=== PATIENT | female | born 1985 | race Caucasian/White ===

== ENCOUNTER 2018-08-11 20:20 | Emergency (ER) | payer BC ==
--- NOTE | 2018-08-11 21:36 | ER ---
Nurse's Notes [facility] Name: Isadora Lassiter Age: 33 yrs Sex: Female : 1985 Arrival Date: 08/11/2018 Time: 20:21 Bed 13 Private MD: Steffanie Willett Diagnosis: Headache Presentation: 08/11 20:52 Presenting complaint: Patient states: that she has had a headache for 15 days and it fc got worse today after she was accidently kicked in the nose by her child. Positive for nausea and photophobia. Transition of care: patient was not received from another setting of care. Onset of symptoms was July 27, 2018. Risk Assessment: Do you want to hurt yourself or someone else? Patient reports no desire to harm self or others. Initial Sepsis Screen: Does the patient meet any 2 criteria? No. Patient's initial sepsis screen is negative. Does the patient have a suspected source of infection? No. Patient's initial sepsis screen is negative. Care prior to arrival: Medication(s) given: Fioricet taken at 1630. 20:52 Method Of Arrival: Ambulatory 20:52 Acuity: GALE 3 Triage Assessment: 20:56 Headache History: The patient has had previous headaches and this one is similar to previous episodes. General: Appears uncomfortable, obese, Behavior is calm, cooperative, appropriate for age. Pain: Complains of pain in head Pain currently is 6 out of 10 on a pain scale. Quality of pain is described as aching, throbbing, Pain began 15 days ago Is continuous, Also complains of nausea, photophobia. EENT: No deficits noted. Neuro: Level of Consciousness is awake, alert, obeys commands, Oriented to person, place, time, situation, Reports headache in entire. Cardiovascular: No deficits noted. Respiratory: No deficits noted. GI: Reports nausea. : No deficits noted. Derm: Skin is pink, warm \T\ dry. Musculoskeletal: Circulation, motion, and sensation intact. Capillary refill < 3 seconds, Range of motion: intact in all extremities. 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 - Social history:: Smoking status: Patient/guardian denies using tobacco. - Ebola Screening: : Patient negative for fever greater than or equal to 101.5 degrees Fahrenheit, and additional compatible Ebola Virus Disease symptoms Patient denies exposure to infectious person Patient denies travel to an Ebola-affected area in the 21 days before illness onset. - Family history:: not pertinent. Screenin:23 Abuse screen: Denies threats or abuse. Denies injuries from another. Nutritional mg2 screening: No deficits noted. Tuberculosis screening: No symptoms or risk factors identified. Fall Risk None identified. Assessment: 21:21 General: Appears in no apparent distress. uncomfortable, Behavior is calm, cooperative. mg2 Pain: Complains of pain in head Pain does not radiate. Pain currently is 7 out of 10 on a pain scale. Quality of pain is described as aching, Pain began gradually. Neuro: Level of Consciousness is awake, alert, obeys commands, Oriented to person, place, time, situation, Reports headache. Cardiovascular: Capillary refill < 3 seconds Patient's skin is warm and dry. Respiratory: Airway is patent Respiratory effort is even, unlabored, Respiratory pattern is regular, symmetrical. GI: No signs and/or symptoms were reported involving the gastrointestinal system. : No signs and/or symptoms were reported regarding the genitourinary system. EENT: No signs and/or symptoms were reported regarding the EENT system. Derm: Skin is intact, is healthy with good turgor, Skin is pink, warm \T\ dry. normal. Musculoskeletal: No signs and/or symptoms reported regarding the musculoskeletal system. Vital Signs: 20:56 BP 108 / 64; Pulse 80; Resp 18; Temp 98.2(O); Pulse Ox 100% on R/A; Weight 113.4 kg fc (R); Height 5 ft. 4 in. (162.56 cm) (R); Pain 6/10; 21:23 BP 98 / 63; Pulse 81; Resp 18; Pulse Ox 100% on R/A; Pain 7/10; mg2 20:56 Body Mass Index 42.91 (113.40 kg, 162.56 cm) ED Course: 20:21 Patient arrived in ED. mr 20:21 Steffanie Willett MD is Private Physician. mr 20:53 Triage completed. 20:56 Arm band placed on Patient placed in waiting room. 21:04 Nestor Connor, RN is Primary Nurse. mg2 21:10 Jeff Parnell MD is Attending Physician. [facility] 21:23 Patient has correct armband on for positive identification. Pulse ox on. NIBP on. mg2 21:33 Steffanie Willett MD is Referral Physician. rodger 21:36 Nuno Tipton MD is Referral Physician. rodger 22:12 No provider procedures requiring assistance completed. Patient did not have IV access mg2 during this emergency room visit. Administered Medications: 21:45 Drug: Phenergan 25 mg Route: IM; Site: left gluteus; mg2 22:12 Follow up: Response: No adverse reaction mg2 21:46 Drug: Demerol 50 mg Route: IM; Site: left gluteus; mg2 22:12 Follow up: Response: No adverse reaction; Marked relief of symptoms mg2 Outcome: 21:36 Discharge ordered by . [facility] 22:13 Discharged to home ambulatory. mg2 22:13 Condition: stable 22:13 Discharge instructions given to patient, Instructed on discharge instructions, follow up and referral plans. medication usage. 22:13 Demonstrated understanding of instructions, follow-up care, medications, Prescriptions given X 2. 22:13 Patient left the ED. mg2 Signatures: Jeff Parnell MD MD cha Rivera, Mary mr ChanChrissie, MARELY RN Nestor Connor, MARELY RN mg2
--- NOTE | 2018-08-11 21:37 | EDPHYS ---
Physician Documentation [facility] Name: Isadora Lassiter Age: 33 yrs Sex: Female : 1985 Arrival Date: 08/11/2018 Time: 20:21 Bed 13 Private MD: Steffanie Willett ED Physician Jeff Parnell HPI: 08/11 21:25 This 33 yrs old Female presents to ER via Ambulatory with complaints of rodger Headache. 21:25 The patient complains of pain to the top of head, forehead, left frontal area and right rodger frontal area. The patient describes the headache as constant. Onset: The symptoms/episode began/occurred 1 day(s) ago. Associated signs and symptoms: The patient has no apparent associated signs or symptoms. Severity of symptoms: At its worst the pain was moderate, in the emergency department the pain is unchanged. Headache History: The patient has had previous headaches and this one is similar to previous episodes, and this one is less severe than previous episodes. The symptoms are alleviated by nothing. the symptoms are aggravated by nothing. The patient has experienced similar episodes in the past, several times. 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 - Social history:: Smoking status: Patient/guardian denies using tobacco. - Ebola Screening: : Patient negative for fever greater than or equal to 101.5 degrees Fahrenheit, and additional compatible Ebola Virus Disease symptoms Patient denies exposure to infectious person Patient denies travel to an Ebola-affected area in the 21 days before illness onset. - Family history:: not pertinent. ROS: 21:25 Constitutional: Negative for fever, chills, and weight loss, Eyes: Negative for injury, rodger pain, redness, and discharge, ENT: Negative for injury, pain, and discharge, Neck: Negative for injury, pain, and swelling, Cardiovascular: Negative for chest pain, palpitations, and edema, Respiratory: Negative for shortness of breath, cough, wheezing, and pleuritic chest pain, Abdomen/GI: Negative for abdominal pain, nausea, vomiting, diarrhea, and constipation, Back: Negative for injury and pain, : Negative for injury, bleeding, discharge, and swelling, MS/Extremity: Negative for injury and deformity, Skin: Negative for injury, rash, and discoloration, Psych: Negative for depression, anxiety, suicide ideation, homicidal ideation, and hallucinations, Allergy/Immunology: Negative for hives, rash, and allergies, Endocrine: Negative for neck swelling, polydipsia, polyuria, polyphagia, and marked weight changes, Hematologic/Lymphatic: Negative for swollen nodes, abnormal bleeding, and unusual bruising. 21:25 Neuro: Positive for headache. Exam: 21:25 Constitutional: This is a well developed, well nourished patient who is awake, alert, rodger and in no acute distress. Head/Face: Normocephalic, atraumatic. Eyes: Pupils equal round and reactive to light, extra-ocular motions intact. Lids and lashes normal. Conjunctiva and sclera are non-icteric and not injected. Cornea within normal limits. Periorbital areas with no swelling, redness, or edema. ENT: Nares patent. No nasal discharge, no septal abnormalities noted. Tympanic membranes are normal and external auditory canals are clear. Oropharynx with no redness, swelling, or masses, exudates, or evidence of obstruction, uvula midline. Mucous membranes moist. Neck: Trachea midline, no thyromegaly or masses palpated, and no cervical lymphadenopathy. Supple, full range of motion without nuchal rigidity, or vertebral point tenderness. No Meningismus. Chest/axilla: Normal chest wall appearance and motion. Nontender with no deformity. No lesions are appreciated. Cardiovascular: Regular rate and rhythm with a normal S1 and S2. No gallops, murmurs, or rubs. Normal PMI, no JVD. No pulse deficits. Respiratory: Lungs have equal breath sounds bilaterally, clear to auscultation and percussion. No rales, rhonchi or wheezes noted. No increased work of breathing, no retractions or nasal flaring. Abdomen/GI: Soft, non-tender, with normal bowel sounds. No distension or tympany. No guarding or rebound. No evidence of tenderness throughout. Back: No spinal tenderness. No costovertebral tenderness. Full range of motion. Skin: Warm, dry with normal turgor. Normal color with no rashes, no lesions, and no evidence of cellulitis. MS/ Extremity: Pulses equal, no cyanosis. Neurovascular intact. Full, normal range of motion. Neuro: Awake and alert, GCS 15, oriented to person, place, time, and situation. Cranial nerves II-XII grossly intact. Motor strength 5/5 in all extremities. Sensory grossly intact. Cerebellar exam normal. Normal gait. Psych: Awake, alert, with orientation to person, place and time. Behavior, mood, and affect are within normal limits. Vital Signs: 20:56 BP 108 / 64; Pulse 80; Resp 18; Temp 98.2(O); Pulse Ox 100% on R/A; Weight 113.4 kg fc (R); Height 5 ft. 4 in. (162.56 cm) (R); Pain 6/10; 21:23 BP 98 / 63; Pulse 81; Resp 18; Pulse Ox 100% on R/A; Pain 7/10; mg2 20:56 Body Mass Index 42.91 (113.40 kg, 162.56 cm) MDM: 21:10 Patient medically screened. [facility] 21:32 Data reviewed: vital signs, nurses notes, lab test result(s), urinalysis. [facility] 08/11 21:25 Order name: Urine Culture [facility] 08/11 21:44 Order name: Urine Dipstick--Ancillary (enter results) 08/11 21:25 Order name: Urine Dipstick-Ancillary (obtain specimen); Complete Time: 21:28 [facility] 08/11 21:44 Order name: Urine --Ancillary (enter results) 08/11 21:25 Order name: Urine Test (obtain specimen); Complete Time: 21:28 [facility] Administered Medications: 21:45 Drug: Phenergan 25 mg Route: IM; Site: left gluteus; mg2 22:12 Follow up: Response: No adverse reaction mg2 21:46 Drug: Demerol 50 mg Route: IM; Site: left gluteus; mg2 22:12 Follow up: Response: No adverse reaction; Marked relief of symptoms mg2 Disposition: 08/11/18 21:36 Discharged to Home. Impression: Headache. - Condition is Stable. - Discharge Instructions: General Headache Without Cause, General Headache Without Cause, [id number]. - Prescriptions for Fioricet with Codeine 50- 325-40-30 mg Oral capsule - take 1 capsule by ORAL route every 4 hours as needed not to exceed 6 capsules per 24hrs; 26 capsule. Zofran 4 mg Oral Tablet - take 1 tablet by ORAL route every 12 hours As needed; 20 tablet. - Medication Reconciliation Form, Thank You Letter, Antibiotic Education, Prescription Opioid Use form. - Follow up: Steffanie Willett MD; When: 2 - 3 days; Reason: Recheck today's complaints, Continuance of care, Re-evaluation by your physician. Follow up: Nuno Tipton MD; When: 2 - 3 days; Reason: Recheck today's complaints, Continuance of care, Re-evaluation by your physician. - Problem is new. - Symptoms have improved. 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 Impression: Headache. Condition is Stable. mg2 Forms are Medication Reconciliation Form, Thank You Letter, Antibiotic Education, Prescription Opioid Use. Follow up: Steffanie Willett; When: 2 - 3 days; Reason: Recheck today's complaints, Continuance of care, Re-evaluation by your physician. Follow up: Nuno Tipton; When: 2 - 3 days; Reason: Recheck today's complaints, Continuance of care, Re-evaluation by your physician. Problem is new. Symptoms have improved. rodger
[2018-08-11] MEDS ORDERED: MEPERIDINE HCL 50 MG/ML AMP ONE (21:42)
[2018-08-11] MEDS ORDERED: PROMETHAZINE 25 MG/ML VIAL ONE (21:42)
[2018-08-11 22:06] LABS: Urine Blood NEGATIVE (NEG); Urine Glucose NEGATIVE (NEG); Urine Protein NEGATIVE (NEG)
[2018-08-11 22:50] VITALS: TEMP 98.2; O2SAT 100
[2018-08-11 22:51] VITALS: BP 98/63
== END 2018-08-11 22:13 | disposition home or self-care (01) ==
LOC: ER 20:20
DX: R51 Headache (principal); F41.9 Anxiety disorder, unspecified; Z88.8 Allergy status to other drugs, medicaments and biological substances
CPT/HCPCS: 81003; 81025; 87086; 87088; 96372; 99283; J2175; J2550